=== PATIENT | female | born 1980 | race Hispanic/Latino ===

== ENCOUNTER 2024-01-06 08:55 | Emergency (ER) | payer SELFPAY ==
[2024-01-06] VITALS (16 sets, daily range): BP systolic 108–131; BP diastolic 46–95; PULSE 57–78; RESP 12–19; TEMP 37; O2SAT 91–100
--- NOTE | ~2024-01-06 | XR_ITS ---
EXAMINATION: XR chest 1V portable DATE: 01/06/2024 10:05 INDICATION: Chest pain. TECHNIQUE: A single frontal view of the chest was obtained. COMPARISON: None. FINDINGS: The lung volumes are small. There is no pneumonia, pleural effusion, or pneumothorax. The h eart size is normal. IMPRESSION: 1. Small lung volumes. Reviewed, dictated and finalized at location A. N RESOURCES OPERATIONS MANAGER IMPRESSION: 1. Small lung volumes.
--- NOTE | ~2024-01-06 | CT_ITS ---
EXAMINATION: CT brain wo con DATE: 01/06/2024 10:45 INDICATION: Headache. Dizziness. TECHNIQUE: Computed tomography (CT) of the head was performed without intravenous contrast. The mA wa s adjusted according to patient size. Iterative reconstruction technique was employed. The dose-lengt h product was 529.67 mGy-cm. COMPARISON: None FINDINGS: There is no intracranial hemorrhage, acute infarction, or abnormal intracranial mass lesion . The ventricles are normal in size. The orbits are normal. The paranasal sinuses are clear. The mast oid air cells are normal. IMPRESSION: 1. Normal brain. Reviewed, dictated and finalized at location A. DULE HANGER IMPRESSION: 1. Normal brain.
--- NOTE | 2024-01-06 09:27 | ECG_ITS ---
Test Date: 2024-01-06 09:37:10 Measurements Intervals [place] Rate: 64 P: 22 WV: 160 QRS: 33 QRSD: 105 T: 31 QT: 411 QTc: 425 Interpretive Statements SINUS RHYTHM DELAYED PRECORDIAL R/S TRANSITION CONSIDER INFERIOR INFARCT, AGE INDETERMINATE BORDERLINE T WAVE ABNORMALITY- ANTEROLATERAL LEADS ABNORMAL ECG No previous ECG available for comparison Electronically Signed On 01-06-2024 09:39:40 EQUAL OPPORTUNITY COUNSELOR by Cm Case D.O.
[2024-01-06 09:37] LABS: Basophils Absolute Auto 0.1 K/mm3 (0.0-0.1); Basophils Percent Auto 0.8 % (0.2-1.2); Eosinophils Absolute Auto 0.7 K/mm3 (0-0.3); Eosinophils Percent Auto 8.9 % (0-4.4); Hematocrit 41.3 % (37.0-47.0); Hemoglobin 13.8 g/dL (12.0-15.0); Immature Granulocyte Absolute 0.02 K/mm3 (0.00-0.031); Immature Granulocyte Percent A 0.3 % (0-0.5); Lymphocytes Absolute Auto 2.52 K/mm3 (0.9-3.2); Lymphocytes Percent Auto 33.8 % (18.3-44.2); Mean Corpuscular HGB Conc 33.4 g/dl (32-36); Mean Corpuscular Hemoglobin 29.9 pg (26-34); Mean Corpuscular Volume 89.6 fl (80-100); Mean Platelet Volume 8.5 fl (7.4-10.4); Monocytes Absolute Auto 0.5 K/mm3 (0.1-0.6); Neutrophils Absolute Auto 3.7 K/mm3 (1.3-6.7); Neutrophils Percent Auto 49.2 % (45.5-73.1); Platelet Count Result 436 k/mm3 (150-375); Red Blood Count 4.61 M/mm3 (4.2-5.4); Red Cell Distribution Width 13.1 % (11.5-14.5); White Blood Count 7.5 K/mm3 (4.5-10.0)
[2024-01-06 09:46] LABS: Alanine Aminotransferase 53 U/L (6-35); Albumin Level 4.4 g/dL (3.5-5.1); Alkaline Phosphatase 144 U/L (38-126); Anion Gap 9 mmol/L (4-12); Aspartate Amino Transferase 40 U/L (14-36); Bilirubin,Total 0.6 mg/dL (0.2-1.3); Blood Urea Nitrogen 13 mg/dL (7-17); Calcium 8.5 mg/dL (8.4-10.2); Carbon Dioxide 24 mmol/L (22-30); Chloride 106 mmol/L (98-107); Estimated CRCL calculation 82 ml/min; Estimated Glomerular Filt Rate > 60; Glucose 106 mg/dL (65-110); Lipase 64 U/L (23-300); Potassium 3.8 mmol/L (3.4-5.0); Sodium 139 mmol/L (137-145)
[2024-01-06 09:56] LABS: Prothrombin Time 13.8 Seconds (11.1-14.7)
[2024-01-06 09:57] LABS: Partial Thromboplastin Time 24.8 Seconds (22.3-36.8); Troponin I < 0.012 ng/mL (0.000-0.034)
--- NOTE | 2024-01-06 10:22 | ED_ITS ---
HPI - Headache General Chief Complaint: Headache Stated Complaint: headache, gen. weak, chest pain Time Seen by Provider: 01/06/24 09:19 Source: patient Mode of arrival: EMS Limitations: no limitations and language barrier History of Present Illness HPI Narrative: Patient is a 43 y/o female who presents to the ED via EMS with report of V[facility]URA. Patient is primarily [place]-speaking. [employer] cost consultant was utilized for assistance with translation. Patient reports she has had a headache since this morning. She reports intermittent dizziness / lightheadedness, nausea. Reports she was seen at a different facility last week for similar symptoms and reports she was supposed to receive an EEG for migraines. Denies history of migraines. Has not taken anything for pain today. Patient also reported having chest pain to EMS. denied this to myself. Related Data Allergies Allergy/AdvReac Type Severity Reaction Status Date / Time No Known Allergies Allergy Verified 01/06/24 09:28 Review of Systems Review of Systems: All systems reviewed & are unremarkable except as noted in HPI. All systems reviewed & are unremarkable except as noted in HPI and below Exam Narrative: GENERAL: Mildly anxious appearing, obese with BMI of 34.7, non-toxic, in no acute distress. HEAD: Normocephalic, atraumatic. EYES: PERRL/EOMI, conjunctiva clear. No nystagmus. RESPIRATORY: Airway patent, respirations nonlabored. Clear to auscultation bilaterally, no rales, rhonchi, wheezing. CARDIOVASCULAR: Regular rate and rhythm without murmurs, rubs, or gallops. MUSCULOSKELETAL: Moves all extremities. No gross deformities. SKIN: Warm, dry, normal color. NEURO: A&O X3. Speech clear. Cranial nerves II-XII grossly intact. Steady gait. No ataxic movements. no focal deficits. 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 Strength 5/5 in upper and lower extremities. PSYCHIATRIC: Anxious. Normal interaction. Course Vital Signs Vital signs: Vital Signs Temperature 98.6 F 01/06/24 09:12 Pulse Rate 78 01/06/24 09:12 Respiratory Rate 16 01/06/24 09:12 Blood Pressure 131/95 H 01/06/24 09:12 Pulse Oximetry 98 01/06/24 09:12 Oxygen Delivery Room Air 01/06/24 09:12 Temperature 98.6 F 01/06/24 09:12 Pulse Rate 60 01/06/24 13:39 Respiratory Rate 18 01/06/24 13:39 Blood Pressure 119/75 01/06/24 13:39 Pulse Oximetry 100 01/06/24 13:39 Oxygen Delivery Room Air 01/06/24 09:12 MDM - Headache MDM Narrative Medical decision making narrative: patient presented to ED with headache, possible migraine, recently seen at an outside hospital for similar. Also reported having chest pain to EMS. Patient is neurologically intact. No focal deficits appreciated on exam. She does appear anxious. CT brain was obtained and negative. Will attempt migraine cocktail. Cardiac workup reassuring. EKG without concerning ischemic changes. Baseline troponin is undetectable. Will obtain 3 hour. 3HR negative. D-dimer WNL. CXR clear. Laboratory studies are otherwise unremarkable. Minimal transaminitis. Patient w/o any RUQ abd pain. Patient sleeping/ sitting very comfortably on re-evaluation. She is feeling better supportive therapy/migraine cocktail. Discussed overall reassuring workup, feel she is safe for discharge home. patient and family in agreement with plan. Discussed continue management of headaches at home. Given return precautions. Discharged in stable condition. Medical Records Attestation: I reviewed the patient's medical records. Lab Data Attestation: I reviewed the patient's lab results. 01/06/24 09:31 01/06/24 09:31 Labs: Lab Results 01/06/24 01/06/24 Range/Units 09:31 12:33 WBC 7.5 (4.5-10.0) K/mm3 RBC 4.61 (4.2-5.4) M/mm3 Hgb 13.8 (12.0-15.0) g/dL Hct 41.3 (37.0-47.0) % MCV 89.6 (80-100) fl MCH 29.9 (26-34) pg MCHC 33.4 (32-36) g/dl RDW 13.1 (11.5-14.5) % Plt Count 436 H (150-375) k/mm3 MPV 8.5 (7.4-10.4) fl Immature Gran % (Auto) 0.3 (0-0.5) % Neut % (Auto) 49.2 (45.5-73.1) % Lymph % (Auto) 33.8 (18.3-44.2) % Sanders % (Auto) 7.0 (2.6-8.5) % Eos % (Auto) 8.9 H (0-4.4) % Baso % (Auto) 0.8 (0.2-1.2) % Lymph # (Auto) 2.52 (0.9-3.2) K/mm3 Sanders # (Auto) 0.5 (0.1-0.6) K/mm3 Eos # (Auto) 0.7 H (0-0.3) K/mm3 Baso # (Auto) 0.1 (0.0-0.1) K/mm3 Abs Immat Gran (auto) 0.02 (0.00-0.031) K/mm3 Absolute Neuts (auto) 3.7 (1.3-6.7) K/mm3 Absolute Nucleated RBC 0.000 (0.0-0.012) K/mm3 Nucleated RBC % 0.0 (0.0-0.2) % PT 13.8 (11.1-14.7) Seconds INR 1.0 APTT 24.8 (22.3-36.8) Seconds D-Dimer 0.34 (<0.48) ug/mL Sodium 139 (137-145) mmol/L Potassium 3.8 (3.4-5.0) mmol/L Chloride 106 (98-107) mmol/L Carbon Dioxide 24 (22-30) mmol/L Anion Gap 9 (4-12) mmol/L BUN 13 (7-17) mg/dL Creatinine 0.70 (0.7-1.0) mg/dL Estim Creat Clear Calc 82 ml/min Estimated GFR > 60 (59 - ) Glucose 106 (65-110) mg/dL Calcium 8.5 (8.4-10.2) mg/dL Total Bilirubin 0.6 (0.2-1.3) mg/dL AST 40 H (14-36) U/L ALT 53 H (6-35) U/L Alkaline Phosphatase 144 H (38-126) U/L Troponin I < 0.012 < 0.012 (0.000-0.034) ng/mL Total Protein 8.0 (6.3-8.2) g/dL Albumin 4.4 (3.5-5.1) g/dL Lipase 64 (23-300) U/L Imaging Data Attestation: I personally reviewed and interpreted this imaging study as follows: Radiologist's impression: ITS Impressions Chest X-Ray 01/06/24 10:13 IMPRESSION: 1. Small lung volumes. Head CT 01/06/24 10:46 IMPRESSION: 1. Normal brain. ECG Data EKG #1: Attestation: I personally reviewed and interpreted this ECG as follows: ECG completion date: 01/06/24 ECG completion time: 09:37 EKG Interpretation: normal rate (64), sinus rhythm and non-specific ST changes Discharge Plan Discharge Clinical Impression: Atypical chest pain Migraine Qualifiers: Migraine type: unspecified Status migrainosus presence: without status migrainosus Intractability: not intractable Qualified Code(s): G43.909 - Migraine, unspecified, not intractable, without status migrainosus Patient Disposition: Home, Self-Care Condition: Stable Instructions: Antibiotic Form, Chest Pain (ED), Migraine Headache (ED), Acute Headache (ED) Additional Instructions: Continue Tylenol and ibuprofen as needed for pain. Utilize Zofran as needed for further nausea. Get plenty of rest. Stay well hydrated. Recommend low light/ low stimulus environment, limiting screen time. Follow-up with your primary care doctor for further evaluation if needed. Return to the ED if you experience worsening or severe pain, worsening chest pain, difficulty breathing, vision changes, unable to keep down food or drink, or any other symptoms of concern. Prescriptions: New ondansetron 4 mg tablet,disintegrating 4 mg PO Q8H PRN (Reason: nausea and vomiting) Qty: 15 0RF Follow-up/Referrals: UNKNOWN,DOCTOR [Primary Care Provider] - Time of Disposition: 13:22
[2024-01-06] MEDS: ACETAMINOPHEN 500 MG TABLET 1000 MG PO (10:49)
[2024-01-06] MEDS: SODIUM CHLORIDE 0.9% IV 1,000 ML 999 ML IV CONT (10:49)
[2024-01-06] MEDS: diphenhydrAMINE HCl INJ 50 MG/ML VIAL 25 MG IV PUSH (10:49)
[2024-01-06] MEDS: METOCLOPRAMIDE HCL INJ 10 MG/2 ML VIAL IV PUSH (10:49)
[2024-01-06] MEDS: KETOROLAC 15 MG/ML VIAL (*BKC) IV PUSH (10:59)
[2024-01-06 11:18] LABS: D Dimer 0.34 ug/mL (<0.48)
[2024-01-06 13:06] LABS: Troponin I < 0.012 ng/mL (0.000-0.034)
[2024-01-06] MEDS: dexAMETHasone SOD PHOS INJ 10 MG/ML 1 ML VIAL IV PUSH (13:27)
== END 2024-01-06 13:41 | disposition home or self-care (01) ==
PROVIDERS: Emergency Medicine; Emergency Provider Physician Assistant
DX: G43.909 Migraine, unspecified, not intractable, without status migrainosus (principal); R07.89 Other chest pain
CPT/HCPCS: 36415; 70450; 71045; 80053; 83690; 84484; 85025; 85380; 85610; 85730; 93005; 96361; 96374; 96375; 99284; A9270; J1100; J1200; J1885; J2765; J7030